=== PATIENT | female | born 1940 | race Caucasian/White ===

== ENCOUNTER → 2020-09-16 | Outpatient (CLI) | payer MEDICARE ==
--- NOTE | 2020-09-16 08:42 | RAD ---
EXAM: Lumbar spine, 3 views. HISTORY: Pain. COMPARISON: None. FINDINGS: 3 views of the lumbar spine are obtained. There is mild lumbar levoscoliosis centered at L2-L3. There is degenerative endplate remodeling with disc space narrowing and vacuum phenomenon at L4-L5. There is facet arthropathy predominantly at L5-S1. There is a severe chronic appearing wedge compression fracture of T12 with near complete loss of anterior vertebral body height and slight retropulsion of the cortex. IMPRESSION: 1. Severe chronic appearing T12 compression fracture. 2. Multilevel degenerative change, primarily at L4-L5 and L5-S1. Electronically signed by: Roslyn Chi MD (09/16/2020 8:40 AM) [id number]
--- NOTE | 2020-09-16 08:44 | RAD ---
EXAM: Bilateral knees, 3 views. HISTORY: Pain. COMPARISON: None. FINDINGS: 3 views of both knees are obtained. There is bilateral patellofemoral compartment joint space narrowing and mild bilateral tricompartmental spurring. There is a small left knee effusion. There are vascular calcifications. There is no fracture, dislocation or subluxation. IMPRESSION: 1. 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 2. Small left knee effusion. Electronically signed by: Roslyn Chi MD (09/16/2020 8:41 AM) [id number]
--- NOTE | 2020-09-16 08:59 | RAD ---
EXAM: Abdomen sonogram. HISTORY: Pain. TECHNIQUE: Sonographic imaging of the abdomen was performed. COMPARISON: None. FINDINGS: The liver is normal in size. No focal hepatic lesion is seen. The common bile duct is normal in caliber for patient age, measuring 6.7 mm. There is cholelithiasis. There is no cholecystitis. The right kidney is normal in size. There is no hydronephrosis. There is a 10 mm simple appearing right renal cyst. The pancreas and inferior vena cava are unremarkable. IMPRESSION: 1. Cholelithiasis. 2. Small simple right renal cyst. Follow-up is not routinely recommended for simple renal cysts. 3. No acute sonographic finding. Electronically signed by: Roslyn Chi MD (09/16/2020 8:56 AM) [id number]
[2020-09-16 10:41] LABS: CALCIUM 9.7 mg/dL (8.5-10.1); GFR 53.1; POTASSIUM 4.1 mmol/L (3.5-5.1); TOTAL PROTEIN 8.1 g/dL (6.4-8.2)
[2020-09-16 11:52] LABS: BASO % 1 % (0-3); EOS % 1 % (0-3); HEMATOCRIT 47.9 % (36.0-47.0); HEMOGLOBIN 15.4 g/dL (12.0-15.5); LYMPH % 35 % (24-48); MEAN CORPUSCULAR HEMOGLOBIN 31 pg (25-35); MEAN CORPUSCULAR HGB CONC 32 g/dL (31-37); MEAN CORPUSCULAR VOLUME 97 fL (79-100); MONO # 0.4 x10^3/uL (0.0-1.1); MONO % 7 % (0-9); NEUT # 3.3 x10^3uL (1.8-7.7); NEUT % 57 % (31-73); PLATELET COUNT 199 x10^3/uL (140-400); RED BLOOD COUNT 4.95 x10^6/uL (3.50-5.40); RED CELL DISTRIBUTION WIDTH 14.3 % (11.5-14.5); WHITE BLOOD COUNT 5.7 x10^3/uL (4.0-11.0)
[2020-09-16 12:48] LABS: PLT ESTIMATE ADEQUATE (ADEQUATE)
== END ==
LOC: US 08:10
PROVIDERS: ATTEND Family Medicine
DX: K80.20 Calculus of gallbladder without cholecystitis without obstruction (principal); N28.1 Cyst of kidney, acquired; M17.0 Bilateral primary osteoarthritis of knee; M25.462 Effusion, left knee; M48.54XA Collapsed vertebra, not elsewhere classified, thoracic region, initial encounter for fracture; M47.817 Spondylosis without myelopathy or radiculopathy, lumbosacral region
CPT/HCPCS: 72100; 73562; 76705; 80053; 82150; 83690; 85025; 86677